=== PATIENT | male | born 1975 | race Two or more races ===

== ENCOUNTER 2019-01-02 12:45 | Emergency (ER) | payer BC, OTHER ==
[2019-01-02 12:58] VITALS: BP 137/54; TEMP 98.1; BMI 50.1
--- NOTE | 2019-01-02 14:45 | PDOC ---
History of Present Illness - General Chief Complaint: Chest Pain Stated Complaint: SENT BY PCP FOR CHEST PAIN Time Seen by Provider: 01/02/19 14:22 History Source: Patient Exam Limitations: No Limitations - History of Present Illness Initial Comments: 01/02/19 14:23 43-year-old male with history of diabetes currently on no medication presents to ED for evaluation of chest pain intermittently for the past 2 days which she describes a sharp tightness over his left chest wall. Patient states Zainab pain began after having a verbal altercation with his spouse which seemed to resolve within minutes. 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 Patient states does go to the gym but has not gone to the gym approximately one week. Patient denies history of anxiety, drug or alcohol abuse. Patient states approximately 4 years ago had a stress test secondary to palpitations and flutters with no significant findings. Presenting Symptoms: Chest Pain Timing/Duration: reports: intermittent Severity/Quality: reports: moderate, pressure, tightness Location: reports: substernal Chest Pain Radiation: reports: no radiation Activities at Onset: reports: none Prior Chest Pain/Cardiac Workup: reports: No prior chest pain Associated Symptoms: Yes: Chest Pain/pressure Past History - Travel Traveled outside of the country in the last 30 days: No Close contact w/someone who was outside of country & ill: No - Past Medical History Allergies/Adverse Reactions: Allergies Allergy/AdvReac Type Severity Reaction Status Date / Time No Known Allergies Allergy Verified 01/02/19 12:58 Home Medications: Ambulatory Orders NK [No Known Home Medication] 01/02/19 COPD: No Diabetes: Yes - Suicide/Smoking/Psychosocial Hx Smoking History: Never smoked Information on smoking cessation initiated: No Hx Alcohol Use: No Drug/Substance Use Hx: No Substance Use Type: None Patient Lives Alone: No Lives with/in: spouse/SO Review of Systems - Review of Systems Able to Perform ROS?: No Is the patient limited [place] proficient: No Constitutional: No: Symptoms Reported HEENTM: No: Symptoms Reported Respiratory: Yes: SOB with Exertion Cardiac (ROS): Yes: Chest Pain, Chest Tightness ABD/GI: No: Symptoms Reported : No: Symptoms Reported Musculoskeletal: No: Symptoms Reported Integumentary: No: Symptoms Reported Neurological: No: Symptoms reported *Physical Exam - Vital Signs Last Vital Signs Temp Pulse Resp BP Pulse Ox 98.1 F 76 18 137/54 L 99 01/02/19 12:56 01/02/19 15:44 01/02/19 12:56 01/02/19 12:56 01/02/19 15:44 - Physical Exam General Appearance: Yes: Nourished, Appropriately Dressed. No: Apparent Distress HEENT: positive: EOMI, IRENE, TMs Normal. negative: Pharynx Normal, Pale Conjunctivae Neck: positive: Normal Thyroid, Supple Respiratory/Chest: positive: Chest Tender (left anterior chest at 4th-7th ICS), Lungs Clear, Normal Breath Sounds. negative: Respiratory Distress, Accessory Muscle Use Cardiovascular: positive: Regular Rhythm, Regular Rate. negative: Murmur Gastrointestinal/Abdominal: positive: Soft. negative: Tenderness Extremity: positive: Normal Capillary Refill. negative: Pedal Edema Integumentary: positive: Normal Color, Warm, Moist Neurologic: positive: Motor Strength 5/5 (ambulatory) ED Treatment Course - LABORATORY CBC & Chemistry Diagram: 01/02/19 15:35 01/02/19 15:35 - ADDITIONAL ORDERS Additional order review: 01/02/19 15:35 RBC 4.87 MCV 86.1 MCHC 33.2 RDW 14.1 MPV 8.2 Neutrophils % 56.4 Lymphocytes % 31.8 Monocytes % 8.1 Eosinophils % 3.1 Basophils % 0.6 - RADIOLOGY Radiology Studies Ordered: Category Date Time Status CHEST X-RAY PORTABLE* [RAD] Stat Radiology 01/02/19 14:35 Completed - Medications Given in the ED: ED Medications Discontinued Medications Generic Name Dose Route Start Last Admin Trade Name Lanny PRN Reason Stop Dose Admin Ketorolac Tromethamine 60 mg 01/02/19 14:46 01/02/19 15:22 Toradol Injection - IM 01/02/19 14:47 60 mg ONCE ONE Administration Medical Decision Making - Medical Decision Making 01/02/19 14:24 Chief complaint: Chest pain intimately for the past 2 days which she describes a sharp tightness along with shortness of breath with minimal exertion while going up the hill near his job which she states has done before without complaints. Exam: Reproducible chest pain over the left fifth to seventh intercostal space at the midclavicular line. Patient's EKG reviewed from [facility] which shows 76 rate and inverted T waves in V1. Plan: Labs, EKG and chest x-ray. Patient will also be ordered for Toradol 01/02/19 16:59 Laboratory Tests 01/02/19 01/02/19 15:35 15:35 WBC 8.9 Hgb 13.9 Hct 41.9 Plt Count 259 MPV 8.2 Absolute Neuts (auto) 5.0 Neutrophils % 56.4 Sodium 140 Potassium 4.1 Chloride 104 Carbon Dioxide 25 Anion Gap 11 BUN 11 Creatinine 0.7 Random Glucose 242 H Calcium 8.9 Total Bilirubin 0.2 AST 20 ALT 37 Alkaline Phosphatase 83 Creatine Kinase 88 Albumin 3.5 01/02/19 17:36 Laboratory Tests 01/02/19 15:35 D-Dimer 401 Pt states feeling better. dc home *DC/Admit/Observation/Transfer Diagnosis at time of Disposition: Musculoskeletal chest pain - Discharge Dispostion Disposition: HOME Condition at time of disposition: Improved - Referrals - Patient Instructions Printed Discharge Instructions: DI for Atypical Chest Pain Additional Instructions: At this time your labs , imaging and ekg were normal. I recommend to take tylenol for discomfort - Post Discharge Activity Forms/Work/School Notes: Back to Work
[2019-01-02] MEDS ORDERED: KETOROLAC TROMETHAMINE 60 MG/2 ML VIAL IM ONE (14:46)
[2019-01-02] MEDS ORDERED: KETOROLAC TROMETHAMINE 60 MG/2 ML VIAL ONE (15:18)
[2019-01-02 15:49] VITALS: PULSE 76
[2019-01-02 15:57] LABS: BASO % 0.6 % (0-2.0); EOS % 3.1 % (0-4.5); HEMATOCRIT 41.9 % (35.4-49); HEMOGLOBIN 13.9 GM/dL (11.7-16.9); LYMPH % 31.8 % (8-40); MCH 28.6 pg (25.7-33.7); MCHC 33.2 g/dl (32.0-35.9); MEAN CELL VOLUME 86.1 fl (80-96); MEAN PLT VOLUME 8.2 fl (7.5-11.1); MONO % 8.1 % (3.8-10.2); NEUT % 56.4 % (42.8-82.8); PLATELET COUNT 259 K/MM3 (134-434); RBC 4.87 M/mm3 (4.00-5.60); RDW 14.1 % (11.9-15.9); WHITE BLOOD COUNT 8.9 K/mm3 (4.0-10.0)
[2019-01-02 16:25] LABS: ALBUMIN 3.5 g/dl (3.4-5.0); ALK PHOS 83 U/L (45-117); ANION GAP 11 MMOL/L (8-16); BILIRUBIN,TOTAL 0.2 mg/dL (0.2-1); BLOOD UREA NITROGEN 11 mg/dL (7-18); CALCIUM 8.9 mg/dL (8.5-10.1); CHLORIDE 104 mmol/L (98-107); CO2 25 mmol/L (21-32); CREATININE 0.7 mg/dL (0.55-1.3); GLUCOSE,RANDOM 242 mg/dL (74-106); POTASSIUM 4.1 mmol/L (3.5-5.1); SGOT/AST 20 U/L (15-37); SGPT/ALT 37 U/L (13-61); SODIUM 140 mmol/L (136-145); TOT PROT 6.9 g/dl (6.4-8.2)
--- NOTE | 2019-01-03 10:37 | EKG ---
Test Reason : Blood Pressure : / mmHG Vent. Rate : 071 BPM Atrial Rate : 071 BPM P-R Int : 182 ms QRS Dur : 094 ms QT Int : 418 ms P-R-T Axes : 063 069 125 degrees QTc Int : 454 ms NORMAL SINUS RHYTHM NON-SPECIFIC INTRA-VENTRICULAR CONDUCTION DELAY ABNORMAL ECG NO PREVIOUS ECGS AVAILABLE Confirmed by MALLORIE SHRESTHA MD ([id number]) on 01/03/2019 10:36:49 AM Referred By: Confirmed By:MALLORIE SHRESTHA MD
--- NOTE | 2019-01-07 14:44 | EKG ---
Test Reason : Blood Pressure : / mmHG Vent. Rate : 065 BPM Atrial Rate : 065 BPM P-R Int : 176 ms QRS Dur : 092 ms QT Int : 388 ms P-R-T Axes : 015 039 022 degrees QTc Int : 403 ms NORMAL SINUS RHYTHM NORMAL ECG WHEN COMPARED WITH ECG OF 02-JAN-2019 11:29, ST NO LONGER DEPRESSED IN LATERAL LEADS T WAVE INVERSION NO LONGER EVIDENT IN LATERAL LEADS QT HAS SHORTENED Confirmed by Rasheed Nicholas ([id number]) on 01/07/2019 2:44:49 PM Referred By: Confirmed By:Rasheed Nicholas
== END 2019-01-02 18:07 | disposition home or self-care (01) ==
LOC: JER 12:45
PROC: 3E0233Z Introduction of Anti-inflammatory into Muscle, Percutaneous Approach (ICD-10-PCS; principal; 2019-01-02)
DX: R07.89 Other chest pain (principal)
CPT/HCPCS: 36415; 71045-TC-FY; 80053; 82550; 84484; 85025; 85379; 93005; 93010; 99284-25